=== PATIENT | male | born 1985 | race Caucasian/White ===

== ENCOUNTER → 2023-12-16 08:39 | Outpatient (CLI) | payer OTHER, SELFPAY ==
[2023-12-16 11:48] LABS: Testosterone 468 ng/dL (132-813)
== END ==
PROVIDERS: PCP Family Medicine; Referring Provider Family Medicine; Visit Provider Family Medicine
DX: R53.82 Chronic fatigue, unspecified (principal); R53.1 Weakness; R68.82 Decreased libido
CPT/HCPCS: 36415; 84403

== ENCOUNTER → 2024-07-06 10:19 | Outpatient (CLI) | payer OTHER, SELFPAY ==
[2024-07-06 10:34] LABS: Semen Sperm Prescence Post-Vas Absent (ABSENT)
== END ==
PROVIDERS: PCP Family Medicine; Referring Provider Family Medicine; Visit Provider Family Medicine
DX: Z98.52 Vasectomy status (principal)
CPT/HCPCS: 89321

== ENCOUNTER → 2024-11-13 08:17 | Outpatient (CLI) | payer OTHER, SELFPAY ==
[2024-11-13 09:12] LABS: Influenza A - CEPHEID Flu A POSITIVE (NEGATIVE); Influenza B - CEPHEID Flu B NEGATIVE (NEGATIVE); Respiratory Syncytial Virus Negative (Negative)
[2024-11-13 09:14] LABS: COVID-19 CEPHEID 4-PLEX PCR Negative (Negative)
== END ==
PROVIDERS: PCP Family Medicine; Referring Provider Nurse Practitioner Family; Visit Provider Nurse Practitioner Family
DX: R05.1 Acute cough (principal); J02.9 Acute pharyngitis, unspecified; R50.9 Fever, unspecified
CPT/HCPCS: 0241U; 87070

== ENCOUNTER → 2024-11-13 08:39 | Outpatient (CLI) | payer OTHER, SELFPAY ==
--- NOTE | 2024-11-13 08:40 | DI.RAD.S_ITS ---
PROCEDURE: XR CHEST 2V INDICATIONS: Cough TECHNIQUE: 2 views of the chest were acquired. COMPARISON: None. FINDINGS: Surgical changes and devices: None. Lungs and pleura: Mild peribronchial thickening without dense airspace disease. No pleural effusions. Possible thin atelectasis seen projecting over the lower lungs on lateral view. Mediastinum: Normal heart size Bones and chest wall: Unremarkable IMPRESSION: Mild peribronchial thickening likely viral infection/bronchitis. No dense airspace disease or pleural effusion. Dictated by: Andrea Mauricio M.D. on 11/13/2024 at 8:02 Approved by: Andrea Mauricio M.D. on 11/13/2024 at 8:04
== END ==
LOC: RAD 08:39
PROVIDERS: PCP Family Medicine; Referring Provider Nurse Practitioner Family; Visit Provider Nurse Practitioner Family
DX: J02.9 Acute pharyngitis, unspecified (principal); R05.1 Acute cough; R50.9 Fever, unspecified
CPT/HCPCS: 0241U; 71046; 87070